=== PATIENT | male | born 1980 | race African-American/Black ===

== ENCOUNTER 2020-09-19 15:07 | Emergency (ER) | payer SELFPAY ==
[2020-09-19] MEDS ORDERED: Boostrix 0.5 ML (Tdap) VIAL ONE (15:41)
[2020-09-19] MEDS ORDERED: HYDROcodone/Acetaminophen 5/325 mg Tablet ONE (15:41)
== END 2020-09-19 16:55 | disposition left against medical advice (07) ==
LOC: MADERS 15:07
DX: S91.331A Puncture wound without foreign body, right foot, initial encounter (principal); F17.210 Nicotine dependence, cigarettes, uncomplicated; W45.0XXA Nail entering through skin, initial encounter
CPT/HCPCS: 90471; 90715